=== PATIENT | male | born 2000 | race Asian ===

== ENCOUNTER 2023-10-05 10:13 | Emergency (ER) | payer OTHER ==
[~2023-10-05] VITALS: Ht 177.8 cm; Wt 77.1 kg
[2023-10-05] MEDS ORDERED: CEPHALEXIN500 M1 PO (10:37)
[2023-10-05 10:44] VITALS: BP 143/93
== END 2023-10-05 10:45 | disposition home or self-care (01) ==
LOC: ED 10:13
DX: M53.3 Sacrococcygeal disorders, not elsewhere classified (principal)
CPT/HCPCS: 99283